=== PATIENT | male | born 1985 | race Caucasian/White ===

== ENCOUNTER 2016-08-13 17:08 | Emergency (ER) | payer OTHER ==
[~2016-08-13 17:08] MED LIST: CIPRO PO; HYDROCODON-ACE1 EAC9 PO; KEFLEX500 M1 PO; MEDROL4 MG/DOSE- PO; NO MEDICATIONS; ROBITUSSIN-PE1 ML PO; ZITHROMAX PO; ZOFRAN ODT4 MG PO
[2016-08-13] MEDS ORDERED: KEFLEX500 M1 PO (18:30)
== END 2016-08-13 18:30 | disposition home or self-care (01) ==
LOC: SED 17:08
DX: S61.210A Laceration without foreign body of right index finger without damage to nail, initial encounter (principal); Z88.0 Allergy status to penicillin; W45.8XXA Other foreign body or object entering through skin, initial encounter; Y92.69 Other specified industrial and construction area as the place of occurrence of the external cause; Y99.0 Civilian activity done for income or pay
CPT/HCPCS: 12001; 99283

== ENCOUNTER 2016-09-24 19:06 | Emergency (ER) | payer SELFPAY ==
[~2016-09-24] VITALS: Ht 185.4 cm; Wt 104.3 kg
[2016-09-24 20:55] LABS: BASOPHIL# 0.1 X10e3 (0-0.3); BASOPHIL% 0.6 % (0-2.5); EOSINOPHIL% 0.3 % (0.0-7.0); HEMATOCRIT 45.8 % (38.0-50.0); HEMOGLOBIN 15.1 gm/dL (13.0-16.0); LYMPHOCYTE# 1.1 X10e3 (1.0-3.5); LYMPHOCYTE% 7.7 % (17.0-45.0); MEAN CELL VOLUME 83.9 FL (83-96); MEAN CORPUSCULAR HEMOGLOBIN 27.7 PG (28-34); MEAN PLATELET VOLUME 7.7 FL (6.5-11.5); MONOCYTE% 6.7 % (3.0-12.0); NEUTROPHIL% 84.7 % (40-75); PLATELET COUNT 192 X10e3 (140-420); RED BLOOD COUNT 5.46 X10e (3.90-5.60); RED CELL DISTRIBUTION WIDTH 13.9 % (11.0-15.5); WHITE BLOOD COUNT 14.2 X10e3 (4.0-10.5)
[2016-09-24 20:56] LABS: DIFF IND NO
[2016-09-24 21:10] LABS: ALBUMIN SERUM 4.4 g/dL (3.5-5.0); ALKALINE PHOSPHATASE 48 U/L (32-92); ALT (SGPT) 27 U/L (10-40); AST (SGOT) 22 U/L (10-42); BLOOD UREA NITROGEN 13 mg/dL (9-23); CALCIUM SERUM 9.4 mg/dL (8.4-10.2); CARBON DIOXIDE 26 mmol/L (22-31); CHLORIDE 99 mmol/L (100-111); CREATININE SERUM 1.3 mg/dL (0.6-1.4); GLOM FILT RATE Estimated 74.3 mL/min (>60); GLUCOSE FASTING 129 mg/dL (70-110); POTASSIUM 4.4 mmol/L (3.5-5.1); PROTEIN TOTAL SERUM 8.3 g/dL (6.0-8.3); SODIUM 134 mmol/L (135-145)
[2016-09-24 21:11] LABS: BILIRUBIN, DIRECT <0.1 mg/dL (0.0-0.2); BILIRUBIN,INDIRECT 0.9 mg/dL (0.0-0.9)
== END 2016-09-24 22:24 | disposition home or self-care (01) ==
LOC: SED 19:06
PROVIDERS: Emergency Medicine
DX: R11.2 Nausea with vomiting, unspecified (principal); J02.0 Streptococcal pharyngitis; F17.200 Nicotine dependence, unspecified, uncomplicated; Z88.0 Allergy status to penicillin
CPT/HCPCS: 36415; 80048; 80076; 85025; 86308; 87880; 96361; 96374; 96375; 99284; J1885; J2405